=== PATIENT | female | born 2005 | race Two or more races ===

== ENCOUNTER 2023-03-13 04:24 | Emergency (ER) | payer OTHER ==
[~2023-03-13] VITALS: Ht 157.5 cm; Wt 72.6 kg
== END 2023-03-13 05:33 | disposition home or self-care (01) ==
LOC: ER 04:24
DX: R51.9 Headache, unspecified (principal)

== ENCOUNTER 2023-06-16 05:35 | Emergency (ER) | payer OTHER ==
[~2023-06-16] VITALS: Ht 157.5 cm; Wt 76.2 kg
[2023-06-16 08:55] LABS: HEMATOCRIT 33.5 % (36.0-45.00); HEMOGLOBIN 11.1 g/dL (12.0-15.00); MEAN CORPUSCULAR HEMOGLOBIN 26.1 pg (27.00-32.0); PLATELET COUNT 266 K/uL (150-450); RED BLOOD COUNT 4.24 M/uL (4.00-6.00); RED CELL DISTRIBUTION WIDTH 14.3 % (11.5-14.5)
[2023-06-16 09:03] LABS: CALCIUM 9.1 mg/dL (8.5-10.1); CREATININE SERUM 0.71 mg/dL (0.55-1.02); GFR 106.05; POTASSIUM 3.46 mEq/L (3.5-5.1)
[2023-06-16 10:10] LABS: URINE APPEARANCE Clear; URINE BILIRRUBIN Negative (NEGATIVE); URINE BLOOD Negative; URINE COLOR Yellow; URINE GLUCOSE Negative (NEGATIVE); URINE LEUKOCYTE Small; URINE NITRATE Negative; URINE PROTEIN Negative (NEGATIVE)
[2023-06-16 10:11] LABS: URINE BACTERIA 2165.6 uL (0.0-1933); URINE EPITHELIAL CELLS 47.9 uL (0.0-38.8); URINE RBC 11.6 uL (0.0-20.8); URINE WBC 55.4 uL (0.0-23.2)
== END 2023-06-16 13:16 | disposition still patient (30) ==
LOC: ER 05:35 → EMR PED 05:40 → ER 05:40
DX: O26.892 Other specified pregnancy related conditions, second trimester (principal); Z3A.19 19 weeks gestation of pregnancy; N20.0 Calculus of kidney

== ENCOUNTER 2023-06-16 12:21 | Inpatient (IN) | payer OTHER ==
[~2023-06-16] VITALS: Ht 154.9 cm; Wt 76.2 kg
[2023-06-16 15:12] LABS: PH,URINE 6.5 (5.0-8.0); URINE APPEARANCE Clear; URINE BILIRRUBIN Negative (NEGATIVE); URINE BLOOD Negative; URINE COLOR Yellow; URINE GLUCOSE Negative (NEGATIVE); URINE LEUKOCYTE Negative; URINE NITRATE Negative; URINE PROTEIN Negative (NEGATIVE)
[2023-06-16 15:15] LABS: URINE BACTERIA 17.6 uL (0.0-1933); URINE EPITHELIAL CELLS 4.6 uL (0.0-38.8); URINE RBC 5.6 uL (0.0-20.8); URINE WBC 7.2 uL (0.0-23.2)
[2023-06-16 15:50] LABS: URINE CRYSTALS FEW /HPF
== END 2023-06-18 09:56 | disposition home or self-care (01) | DRG 833 ==
LOC: LDR 12:21
PROVIDERS: Obstetrics & Gynecology Maternal & Fetal Medicine; ADMIT Obstetrics & Gynecology; ATTEND Obstetrics & Gynecology
PROC: BY4CZZZ Ultrasonography of Second Trimester, Single Fetus (ICD-10-PCS; principal; 2023-06-16)
PROC: 4A1HXCZ Monitoring of Products of Conception, Cardiac Rate, External Approach (ICD-10-PCS; 2023-06-16)
DX: O26.892 Other specified pregnancy related conditions, second trimester (principal); R10.2 Pelvic and perineal pain; Z3A.22 22 weeks gestation of pregnancy; Z20.822 Contact with and (suspected) exposure to COVID-19

== ENCOUNTER 2023-09-23 17:06 | Inpatient (IN) | payer OTHER ==
[2023-09-23] MEDS ORDERED: PRENATABS RX T1 EACH PO (17:42)
[2023-09-23 18:43] LABS: HEMATOCRIT 33.6 % (36.0-45.00); MEAN CELL VOLUME 75.8 fL (80.00-100.00); MEAN CORPUSCULAR HEMOGLOBIN 24.9 pg (27.00-32.0); MEAN CORPUSCULAR HGB CONC 32.8 g/dl (32.0-36.0); PLATELET COUNT 219 K/uL (150-450); RED BLOOD COUNT 4.43 M/uL (4.00-6.00); RED CELL DISTRIBUTION WIDTH 15.1 % (11.5-14.5)
[2023-09-23 18:59] LABS: INR 0.94; PARTIAL THROMBOPLASTIN TIME 25.1 SECONDS (22.0-34.0); PROTHROMBIN TIME 9.9 SECONDS (9.0-11.5)
[2023-09-23 19:04] LABS: ALBUMIN 2.6 gm/dL (3.4-5.0); BILIRUBIN TOTAL 0.58 mg/dL (0.3-1.2); CREATININE SERUM 0.55 mg/dL (0.55-1.02); GFR 142.39; GLOBULINA 3.7 G/DL (2.4-3.5); POTASSIUM 4.61 mEq/L (3.5-5.1); TOTAL PROTEIN 6.3 gm/dL (6.4-8.2)
[2023-09-25 07:24] LABS: MEAN CELL VOLUME 76.9 fL (80.00-100.00); MEAN CORPUSCULAR HGB CONC 32.6 g/dl (32.0-36.0); PLATELET COUNT 239 K/uL (150-450); RED BLOOD COUNT 2.76 M/uL (4.00-6.00); RED CELL DISTRIBUTION WIDTH 14.6 % (11.5-14.5)
[2023-09-25 07:29] LABS: HEMATOCRIT 21.2 % (36.0-45.00)
[2023-09-25 07:30] LABS: HEMOGLOBIN 6.9 g/dL (12.0-15.00)
[2023-09-25 08:51] LABS: MEAN CELL VOLUME 76.8 fL (80.00-100.00); MEAN CORPUSCULAR HGB CONC 33.1 g/dl (32.0-36.0); PLATELET COUNT 268 K/uL (150-450); RED BLOOD COUNT 3.06 M/uL (4.00-6.00); RED CELL DISTRIBUTION WIDTH 15.1 % (11.5-14.5)
[2023-09-25 08:52] LABS: HEMATOCRIT 23.5 % (36.0-45.00); MEAN CORPUSCULAR HEMOGLOBIN 25.4 pg (27.00-32.0)
[2023-09-25 09:00] LABS: HEMOGLOBIN 7.8 g/dL (12.0-15.00)
== END 2023-09-27 15:40 | disposition home or self-care (01) | DRG 805 ==
LOC: LDR 17:06 → OB/GYN 17:06 → LDR 09-24 08:58 → OB/GYN 09-24 18:24
PROVIDERS: Obstetrics & Gynecology; Obstetrics & Gynecology Gynecology; Obstetrics & Gynecology Maternal & Fetal Medicine; ADMIT Obstetrics & Gynecology; ATTEND Obstetrics & Gynecology
PROC: 4A1HXCZ Monitoring of Products of Conception, Cardiac Rate, External Approach (ICD-10-PCS; 2023-09-23)
PROC: 10E0XZZ Delivery of Products of Conception, External Approach (ICD-10-PCS; principal; 2023-09-24)
PROC: 0KQM0ZZ Repair Perineum Muscle, Open Approach (ICD-10-PCS; 2023-09-24)
PROC: 0UQMXZZ Repair Vulva, External Approach (ICD-10-PCS; 2023-09-24)
DX: O70.1 Second degree perineal laceration during delivery (principal); O70.0 First degree perineal laceration during delivery; O99.02 Anemia complicating childbirth; D64.9 Anemia, unspecified; O60.14X0 Preterm labor third trimester with preterm delivery third trimester, not applicable or unspecified; Z37.0 Single live birth; Z3A.35 35 weeks gestation of pregnancy